=== PATIENT | female | born 1990 | race African-American/Black ===

== ENCOUNTER 2021-09-29 02:27 | Emergency (ER) | payer OTHER, SELFPAY ==
[2021-09-29] VITALS (8 sets, daily range): BP systolic 124–156; BP diastolic 82–112; PULSE 84–109; RESP 14–26; TEMP 35.9–36.4; O2SAT 93–100
--- NOTE | ~2021-09-29 | XR_ITS ---
XR shoulder RT min 2V DATE: 09/29/2021 03:24 INDICATION: Right shoulder injury, dislocation TECHNIQUE: 2 views COMPARISON: None FINDINGS: There is anterior dislocation of the right humeral head which is in subcoracoid position. P ossible Hill-Sachs deformity of the humeral head. Normal alignment at the right acromioclavicular joint. IMPRESSION: Anterior glenohumeral dislocation Reviewed, dictated and finalized at location A. EYOR
--- NOTE | ~2021-09-29 | XR_ITS ---
XR shoulder RT min 2V DATE: 09/29/2021 04:13 INDICATION: Postoperative reduction and examination TECHNIQUE: AP and Neer views COMPARISON: 09/29/2021 pre-reduction right shoulder FINDINGS: There is reduction of the anterior dislocation of the right glenohumeral joint. There is ev idence of a Hill-Sachs deformity of the proximal right humerus. Normal alignment at the right acromion clavicular joint. IMPRESSION: Reduction of anterior dislocation Hill Sachs deformity of proximal right humerus Reviewed, dictated and finalized at location A. ESSER
[2021-09-29] MEDS: MORPHINE SULFATE (*CRX) 4 MG/ML INJ IV PUSH (03:31)
--- NOTE | 2021-09-29 03:36 | ED.GENADULT ---
HPI - General Adult General Chief complaint: Extremity Injury, Upper Stated complaint: shoulder feels like it's dislocated Time Seen by Provider: 09/29/21 03:04 History of Present Illness HPI narrative: Patient is a 30-year-old female who presents ER with right shoulder dislocation. She was having intercourse this evening when she got rolled onto her side with her arm out causing sudden onset pain. Has some tingling into her forearm but maintains range of motion of her hand and wrist with normal strength. Pulses intact. Sensation intact as well. Does have discomfort with any type of range of motion attempted at the shoulder. Has history of previous dislocation in April 2021. Has not had surgery on her shoulder. No additional injuries or concerns. Related Data Allergies Allergy/AdvReac Type Severity Reaction Status Date / Time No Known Allergies Allergy Verified 09/29/21 02:35 Review of Systems Review of Systems: All systems reviewed & are unremarkable except as noted in HPI and below Gastrointestinal: Gastrointestinal: Denies nausea and Denies vomiting Musculoskeletal: Musculoskeletal: Denies back pain, Reports arthralgias and Denies joint swelling Neurologic: Denies syncope, Denies focal weakness and Denies numbness PMFSH Past Medical History Medical History (Updated 09/29/21 @ 04:16 by Sukhi Guido MD) Healthy female adult Surgical History Surgical History (Updated 09/29/21 @ 03:38 by Sukhi Guido MD) No history of previous surgery Exam Narrative: GENERAL: Well-appearing, well-nourished, and in no acute distress. HEAD: Normocephalic, atraumatic. ENT: Mucous membranes moist. NECK: Supple. CHEST: Clear to auscultation. No respiratory distress. HEART: Regular rate and rhythm. Normal peripheral pulses. ABDOMEN: Soft, nontender, nondistended. EXTREMITIES: Right upper extremity held in internal rotation, deformity at the shoulder. Neurovascular intact distal to the shoulder. No tenderness at the elbow or wrist or hand. SKIN: Warm, dry, no rash. NEURO: Alert and oriented x3. PSYCH: Normal mood and affect. Course Course Emergency Course: Patient resting comfortably. Shoulder reduced. Shoulder immobilizer applied. Discussed need for follow-up. Discharge home. Vital Signs Vital signs: Vital Signs Temperature 97.3 F L 09/29/21 02:30 Pulse Rate 109 H 09/29/21 02:30 Respiratory Rate 18 09/29/21 02:30 Blood Pressure 124/83 09/29/21 02:30 Pulse Oximetry 100 09/29/21 02:30 Temperature 97.2 F L 09/29/21 03:59 Pulse Rate 102 H 09/29/21 03:59 Respiratory Rate 22 H 09/29/21 03:59 Blood Pressure 156/111 H 09/29/21 03:59 Pulse Oximetry 100 09/29/21 03:59 Procedures Orthopedic Joint Reduction Joint #1: Orthopedic Joint Reduction Date: 09/29/21 Orthopedic Joint Reduction Time: 04:02 Time Out Performed: Yes Side: right Joint Reduction Location: shoulder Analgesia: procedural sedation Pre-Procedure Neuro Vascular Exam: normal Shoulder Technique Used (if applicable): Milana m Post-reduction neuro exam: intact Post-reduction vascular: intact Post Reduction X-Ray Obtained: Yes Post Reduction X-Ray Results: reduced Splint Applied: Yes Patient Tolerated Procedure: well Procedural Sedation Procedural Sedation #1: Procedural Sedation Date: 09/29/21 Procedural Sedation Time: 04:02 Presedation Evaluation: Resting comfortably, oxygen 100% on room air. Pain in right shoulder due to dislocation. Procedure: Right shoulder reduction Provider Performed: sedation and procedure Time Out: 0402 Informed Consent Obtained: yes Equipment in Room: bag and mask, capnography, cardiac rehabilitation specialist, crash cart, pulse oximeter and suction Plan for Sedation: moderate sedation ASA Class: I Mallampati Classification: class II NPO Status: last solid food (michel
--- NOTE | 2021-09-29 04:03 | PC.NURSE ---
50mg propofol administered by EDP Dr. Guido at this time.
--- NOTE | 2021-09-29 04:04 | PC.NURSE ---
30mg propofol administered at this time by EDP
[2021-09-29] MEDS: SODIUM CHLORIDE 0.9% IV 1,000 ML 999 ML (04:16)
== END 2021-09-29 05:20 | disposition home or self-care (01) ==
PROVIDERS: Emergency Provider Emergency Medicine
DX: S43.014A Anterior dislocation of right humerus, initial encounter (principal); X58.XXXA Exposure to other specified factors, initial encounter
CPT/HCPCS: 23650; 73030; 96374; 99285; J2270; J7030